=== PATIENT | male | born 1960 | race Caucasian/White ===

== ENCOUNTER 2017-07-08 20:53 | Outpatient (CLI) | payer OTHER | END 2017-07-08 20:54 | disposition short-term general hospital (02) | LOC: EMS 20:53 | PROVIDERS: ATTEND Surgery | DX: R11.2 Nausea with vomiting, unspecified (principal); R19.7 Diarrhea, unspecified | CPT/HCPCS: A0425; A0429 ==

== ENCOUNTER 2022-04-08 05:46 | Outpatient (CLI) | payer OTHER | END 2022-04-08 05:47 | disposition short-term general hospital (02) | LOC: EMS 05:46 | DX: R10.32 Left lower quadrant pain (principal); R10.814 Left lower quadrant abdominal tenderness | CPT/HCPCS: A0425; A0427 ==